=== PATIENT | female | born 1975 | race Caucasian/White ===

== ENCOUNTER 2021-12-05 04:45 | Observation (INO) ==
[2021-12-05] MEDS ORDERED: Morphine Sulfate 2 MG/ML SYRINGE IVP ONE ×3 (05:16→10:32)
[2021-12-05] MEDS ORDERED: Isovue-370 500 ML BOTTLE IVP ONE (05:17)
[2021-12-05] MEDS ORDERED: Ondansetron 4 MG/2 ML VIAL IVP ONE (05:54)
[2021-12-05 06:02] LABS: Basophils % 0.4 %; Eosinophils # 0.1 K/mcL (0.0-0.6); Eosinophils % 0.4 %; Hematocrit 43.2 % (35.3-44.9); Hemoglobin 13.9 g/dL (11.5-15.4); Immature Granulocytes % 0.4 % (0-4); Lymphocytes % 8.9 %; Mean Corpuscular HGB Conc 32.2 g/dL (31.6-35.5); Mean Corpuscular Hemoglobin 27.4 pg (28.0-33.3); Monocytes # 0.5 K/mcL (0.0-1.3); Monocytes % 4.8 %; Neutrophils # 9.6 K/mcL (1.6-8.9); Platelet Count 319 K/mcL (140-400); Red Blood Count 5.08 M/mcL (3.82-4.97); Red Cell Distribution Width 13.4 % (11.5-14.5); Segmented Neutrophils % 85.1 %; White Blood Count 11.3 K/mcL (4.3-11.1)
[2021-12-05 06:24] LABS: Alanine Aminotransferase 14 Units/L (7-52); Albumin 4.2 g/dL (3.5-5.7); Albumin/Globulin Ratio 1.7 (1.1-2.2); Alkaline Phosphatase 80 Units/L (34-104); Amylase 21 Units/L (29-103); Aspartate Amino Transferase 15 Units/L (13-39); BUN/Creatinine Ratio 15 (6-26); Bilirubin,Total 0.4 mg/dL (0.3-1.0); Blood Urea Nitrogen 12 mg/dL (6-20); Calcium 9.2 mg/dL (8.6-10.3); Carbon Dioxide 28 mEq/L (23-29); Chloride 101 mEq/L (98-107); Globulin 2.5 g/dL (2.4-3.5); Glucose 125 mg/dL (70-105); Lipase 20 Units/L (11-82); Osmolality,Calculated 287 (280-300); Potassium 3.9 mEq/L (3.5-5.1); Sodium 138 mEq/L (136-145); Total Protein 6.7 g/dL (6.4-8.9); Troponin I < 0.03 ng/mL (< 0.04); eGFR For African Americans > 60 (> 60); eGFR For Non-African Americans > 60 (> 60)
[2021-12-05 06:45] LABS: Bilirubin,Urine Negative (Negative); Blood,Urine Negative (Negative); Clarity,Urine Clear (Clear); Color,Urine Colorless (Yellow); Glucose,Urine (UA) Normal (Normal); Ketones,Urine Negative (Negative); Leukocyte Esterase,Urine Negative (Negative); Nitrite,Urine Negative (Negative); Protein,Urine Negative (Neg-Trace); Specific Gravity,Urine > 1.030 (1.010-1.025); Urobilinogen,Urine Normal (Normal)
[2021-12-05] MEDS ORDERED: Pantoprazole 40 MG VIAL IVP ONE (07:29)
[2021-12-05] MEDS ORDERED: Famotidine 20 MG/2 ML VIAL IVP ONE (07:29)
[2021-12-05] MEDS ORDERED: Ondansetron 4 MG/2 ML VIAL IVP PRN ×3 (07:29→19:59)
[2021-12-05] MEDS ORDERED: Metoclopramide 10 MG/2 ML VIAL IVP ONE ×2 (07:35→19:13)
[2021-12-05] MEDS ORDERED: Ondansetron 4 MG/2 ML VIAL ONE (07:35)
[2021-12-05] MEDS ORDERED: ALPRAZolam 0.25 MG TABLET PO PRN ×2 (14:27→19:59)
[2021-12-05] MEDS ORDERED: *HR* FentaNYL (PF) 100 MCG/2 ML VIAL IVP PRN (14:28)
[2021-12-05] MEDS ORDERED: *HR* HYDROmorphone PF 0.5 MG/0.5 ML SYRINGE IVP PRN (14:28)
[2021-12-05] MEDS ORDERED: 0.9 % Sodium Chloride 1,000 ML IVC SCH ×2 (14:30→19:59)
[2021-12-05] MEDS ORDERED: ceFAZolin 1,000 MG in 0.9 % Sodium Chloride Mini Bag 100 ML IVPB SCH (15:00)
[2021-12-05] MEDS ORDERED: ceFAZolin 1,000 MG in 0.9 % Sodium Chloride Mini Bag 100 ML IVP SCH (15:00)
[2021-12-05] MEDS ORDERED: ceFAZolin 1,000 MG in Water for inj. (sterile) 10 ML IVP SCH (15:00)
[2021-12-05] MEDS ORDERED: *HR* FentaNYL (PF) 100 MCG/2 ML VIAL ONE (17:11)
[2021-12-05] MEDS ORDERED: *HR* Rocuronium Bromide 50 MG/5 ML VIAL ONE ×2 (17:11→17:17)
[2021-12-05] MEDS ORDERED: *HR* Succinylcholine 200 MG/10 ML VIAL IVP ONE (17:11)
[2021-12-05] MEDS ORDERED: Lidocaine -MPF 1% 5 ML AMPUL ONE (17:11)
[2021-12-05] MEDS ORDERED: *HR* Midazolam HCl 2 MG/2 ML VIAL ONE (17:12)
[2021-12-05] MEDS ORDERED: *HR* Propofol 200 MG/20 ML VIAL IVP ONE ×2 (17:12→17:31)
[2021-12-05] MEDS ORDERED: *HR* HYDROMORPHONE 2 MG/ML VIAL ONE (17:54)
[2021-12-05] MEDS ORDERED: Acetaminophen IV 1,000 MG/100 ML BAG IVPB SCH (18:00)
[2021-12-05] MEDS ORDERED: Dexmedetomidine HCl 400 MCG/100 ML MLS IVC ONE (18:02)
[2021-12-05] MEDS ORDERED: Acetaminophen IV 1,000 MG/100 ML BAG IVPB ONE (18:16)
[2021-12-05] MEDS ORDERED: Ketorolac 30 MG/ML VIAL IVP ONE ×2 (18:17→19:59)
[2021-12-05] MEDS ORDERED: Ketorolac 30 MG/ML VIAL ONE (18:19)
[2021-12-05] MEDS: ceFAZolin 1,000 MG in 0.9 % Sodium Chloride Mini Bag 100 ML IVPB SCH (23:03)
[2021-12-05] MEDS: Acetaminophen IV 1,000 MG/100 ML BAG IVPB SCH (23:49)
[2021-12-06] MEDS: Acetaminophen IV 1,000 MG/100 ML BAG IVPB SCH (05:40)
[2021-12-06 06:14] VITALS: BP 113/76; PULSE 62; TEMP 97.9; O2SAT 96
[2021-12-06 08:47] LABS: BUN/Creatinine Ratio 11 (6-26); Blood Urea Nitrogen 8 mg/dL (6-20); Calcium 8.4 mg/dL (8.6-10.3); Carbon Dioxide 23 mEq/L (23-29); Chloride 107 mEq/L (98-107); Glucose 127 mg/dL (70-105); Osmolality,Calculated 288 (280-300); Potassium 4.3 mEq/L (3.5-5.1); Sodium 139 mEq/L (136-145); eGFR For African Americans > 60 (> 60); eGFR For Non-African Americans > 60 (> 60)
[2021-12-06 08:51] LABS: Basophils % 0.1 %; Hematocrit 40.1 % (35.3-44.9); Immature Granulocytes % 0.7 % (0-4); Lymphocytes # 0.6 K/mcL (0.6-4.6); Lymphocytes % 5.1 %; Mean Corpuscular HGB Conc 32.4 g/dL (31.6-35.5); Mean Corpuscular Volume 83.4 fL (83.0-100.0); Mean Platelet Volume 9.4 fL (9.4-12.4); Monocytes # 0.4 K/mcL (0.0-1.3); Monocytes % 3.2 %; Neutrophils # 11.5 K/mcL (1.6-8.9); Platelet Count 318 K/mcL (140-400); Red Blood Count 4.81 M/mcL (3.82-4.97); Red Cell Distribution Width 13.6 % (11.5-14.5); Segmented Neutrophils % 90.9 %; White Blood Count 12.6 K/mcL (4.3-11.1)
[2021-12-06] MEDS: ceFAZolin 1,000 MG in 0.9 % Sodium Chloride Mini Bag 100 ML IVPB SCH (09:44)
== END 2021-12-06 11:44 | disposition home or self-care (01) ==
LOC: 3BNU 04:45 → EMEROOARM 04:45 → 3BNU 13:36
PROVIDERS: ADMIT Surgery; ATTEND Surgery